=== PATIENT | female | born 1960 | race Caucasian/White ===

== ENCOUNTER 2020-12-14 12:49 | Emergency (ER) | payer OTHER ==
[~2020-12-14] VITALS: Ht 165.1 cm; Wt 93.0 kg
[2020-12-14 13:02] VITALS: BP 195/107
--- NOTE | 2020-12-14 13:13 | NUR ---
PT TAKEN TO BED 7.
--- NOTE | 2020-12-14 13:28 | NUR ---
60/F presents to ED with c/o right wrist pain s/p fall this morning. Patient states she tripped and fell landing on her right wrist, bruising and tenderness noted to right wrist. Patient denies taking anything for pain, ROM limited due to pain, sensation equal bilaterally, cap refill less than 2 seconds in all digits.
[2020-12-14] MEDS ORDERED: HYDROcodone/APAP 5/325 MG 1 TAB TAB PO ONE (13:30)
[2020-12-14] MEDS ORDERED: BACITRACIN OINT 500 UNITS/GM PKT TP ONE (13:30)
[2020-12-14] MEDS ORDERED: ONDANSETRON 4 MG ODT PO ONE (13:30)
[2020-12-14] MEDS ORDERED: IBUP-2213 PO (13:34)
[2020-12-14] MEDS ORDERED: ACET-8386 PO (13:34)
--- NOTE | 2020-12-14 14:22 | NUR ---
PT PLACED IN RIGHT SHOULDER SLING AND PLACED IN RIGHT COLLE WRIST SPLINT, CMS WNL BEFORE AND AFTER.
--- NOTE | 2020-12-14 14:29 | NUR ---
Patient discharged with v/s stable. Written and verbal after care instructions given and explained. Patient alert, oriented and verbalized understanding of instructions. Ambulatory with steady gait. All questions addressed prior to discharge. ID band removed. Patient advised to follow up with PMD. Rx of [place] and Ibuprofen given. Patient educated on indication of medication including possible reaction and side effects. Opportunity to ask questions provided and answered.
== END 2020-12-14 14:29 | disposition home or self-care (01) ==
LOC: MED 12:49
DX: S59.291A Other physeal fracture of lower end of radius, right arm, initial encounter for closed fracture (principal); I10 Essential (primary) hypertension; Z79.891 Long term (current) use of opiate analgesic; Z79.1 Long term (current) use of non-steroidal anti-inflammatories (NSAID); W18.40XA Slipping, tripping and stumbling without falling, unspecified, initial encounter; Y93.01 Activity, walking, marching and hiking; Y92.89 Other specified places as the place of occurrence of the external cause; Y99.8 Other external cause status
CPT/HCPCS: 29125; 73110; 99284; Q0162